=== PATIENT | male | born 1955 | race Hispanic/Latino ===

== ENCOUNTER → 2018-08-06 | Day surgery (SDC) | payer OTHER ==
[2018-08-05 15:45] LABS: BASOPHILS # (AUTO) 0.1 (0.0-0.1); BASOPHILS % 0.9 % (0.0-1.0); EOSINOPHILS # (AUTO) 0.2 (0.0-0.4); EOSINOPHILS % 1.8 % (0.0-6.0); HEMATOCRIT 37.7 % (38.2-49.6); HEMOGLOBIN 13.3 g/dL (14.0-18.0); LYMPHOCYTES # (AUTO) 2.7 (1.0-3.2); LYMPHOCYTES % 23.7 % (18.0-39.1); MEAN CORPUSCULAR HEMOGLOBIN 32.6 pg (28-32); MEAN CORPUSCULAR HGB CONC 35.3 g/dL (31-35); MEAN CORPUSCULAR VOLUME 92.4 fL (81-99); MONOCYTES % 8.6 % (4.4-11.3); NEUTROPHILS # (AUTO) 7.5 (2.1-6.9); NEUTROPHILS % 64.7 % (38.7-80.0); PLATELET COUNT 252 x10e3/uL (140-360); RED BLOOD COUNT 4.08 x10e6/uL (4.3-5.7); RED CELL DISTRIBUTION WIDTH 13.2 % (11.7-14.4)
[2018-08-05 16:01] LABS: ANION GAP 14.6 mmol/L (8-16); BLOOD UREA NITROGEN < 5 mg/dL (7-26); CALCIUM 9.7 mg/dL (8.4-10.2); CARBON DIOXIDE 25 mmol/L (22-29); CHLORIDE 102 mmol/L (98-107); CREATININE, SERUM 0.81 mg/dL (0.72-1.25); EST GLOMERULAR FILTRATION RATE > 60 ML/MIN (60-); GLUCOSE 103 mg/dL (74-118); POTASSIUM 4.6 mmol/L (3.5-5.1); SODIUM 137 mmol/L (136-145)
[2018-08-05 16:02] LABS: BUN/CREATININE RATIO 6 (6-25)
--- NOTE | 2018-08-05 16:14 | Diagnostic Imaging Report ---
EXAMINATION: CHEST 2 VIEWS INDICATION: Pre- COMPARISON: None FINDINGS: TUBES and LINES: None. LUNGS: Lungs are well inflated. Lungs are clear. There is no evidence of pneumonia or pulmonary edema. PLEURA: No pleural effusion or pneumothorax. HEART AND MEDIASTINUM: The cardiomediastinal silhouette is unremarkable. BONES AND SOFT TISSUES: No acute osseous lesion. Soft tissues are unremarkable. UPPER ABDOMEN: No free air under the diaphragm. IMPRESSION: No acute thoracic abnormality. Signed by: Dr. Carter Miller MD on 08/05/2018 4:10 PM
[~2018-08-06] MED LIST: ACETAMINOPHEN 1000 MG/100 ML IV ONE; BLOOD PRESSURE MED PO; BUPIVACAINE 0.25%/EPI 30ML SDV INJ ONE; DEXAMETHASONE SOD PHOS INJ 4 MG/ML VIAL ONE; FENTANYL CITRATE/PF 100MCG/2 ML INJ ONE; GLYCOPYRROLATE INJ 1MG/ 5 ML SYR ONE; HYDROCODONE/APAP 7.5MG-325MG 1 EA TAB ONE; HYDROMORPHONE 1MG/1ML INJ ONE; LIDOCAINE HCL 2% LOCAL INJ 5 ML SDV VIAL INJ ONE; LISINOPRIL10 MG PO; MIDAZOLAM HCL 2 MG/2 ML VIAL ONE; NEOSTIGMINE 5 MG/5ML SYR ONE; ONDANSETRON HCL INJ 2 MG/ML VIAL ONE; PROPOFOL IV EMULSION 10 MG/ML 20 ML VIAL ONE; ROCURONIUM BROMIDE 10 MG/ML 5ML VIAL ONE; SEVOFLURANE INHAL SOLN 250 ML PEN BTL ONE; XANAX PO
[2018-08-06 19:30] VITALS: BP 111/77
--- NOTE | 2018-08-06 20:51 | Operative Report ---
DATE OF PROCEDURE: August 06, 2018 PREOPERATIVE DIAGNOSIS: Incarcerated umbilical hernia. POSTOPERATIVE DIAGNOSIS: Incarcerated umbilical hernia. OPERATION PERFORMED: Repair of incarcerated umbilical hernia with Ventralex patch. ANESTHESIA: General. COMPLICATIONS: None. ESTIMATED BLOOD LOSS: Minimal. DESCRIPTION OF PROCEDURE: With the patient lying in bed in the supine position under good general endotracheal anesthesia, the abdomen was prepped with Betadine solution and draped in the usual manner. A semilunar subumbilical incision was made, was carried down through the subcutaneous tissue down to the fascia. The hernia sac was then circumferentially dissected with normal fascia all the way around. The umbilicus was then detached from the hernia sac and the hernia sac was opened. There was some incarcerated omentum contained within the hernia sac and this was resected and ligated with 2-0 Vicryl. The excess of the hernia sac was resected. Once this was done, all of the edges were properly prepared and a medium size Ventralex patch was then placed intraperitoneally and the defect was then closed transversally anchoring the mesh with the closure of 0 Ethibond. This gave us a satisfactory closure without any tension. The whole area was then thoroughly irrigated. Perfect hemostasis was ascertained. All layers were infiltrated on the way out with solution of 0.25% Marcaine. The umbilicus was then tacked back down to the midline fascia with 3-0 Vicryl. The subcutaneous tissue was approximated with 3-0 Vicryl and the skin was closed with interrupted vertical mattress sutures of 3-0 silk. A dressing was applied. The sponge, lap, and needle count was correct. The patient tolerated the procedure well and returned to the recovery room in stable condition. Job#: [id number] PRIYA
== END | disposition home or self-care (01) ==
LOC: OR 08:41
PROVIDERS: ATTEND Surgery
DX: K42.0 Umbilical hernia with obstruction, without gangrene (principal); I10 Essential (primary) hypertension; Z01.810 Encounter for preprocedural cardiovascular examination; Z01.812 Encounter for preprocedural laboratory examination; Z01.818 Encounter for other preprocedural examination
CPT/HCPCS: 36415; 49587; 71046; 80048; 85025; 93005; C1781; J1100; J1170; J2001; J2250; J2405; J3490

== ENCOUNTER 2019-06-08 18:14 | Inpatient (IN) | payer OTHER ==
[~2019-06-08] VITALS: Ht 172.7 cm; Wt 84.5 kg
[~2019-06-08 18:14] MED LIST changes: -ACETAMINOPHEN 1000 MG/100 ML IV ONE; -BUPIVACAINE 0.25%/EPI 30ML SDV INJ ONE; -DEXAMETHASONE SOD PHOS INJ 4 MG/ML VIAL ONE; -FENTANYL CITRATE/PF 100MCG/2 ML INJ ONE; -GLYCOPYRROLATE INJ 1MG/ 5 ML SYR ONE; -HYDROCODONE/APAP 7.5MG-325MG 1 EA TAB ONE; -HYDROMORPHONE 1MG/1ML INJ ONE; -LIDOCAINE HCL 2% LOCAL INJ 5 ML SDV VIAL INJ ONE; -MIDAZOLAM HCL 2 MG/2 ML VIAL ONE; -NEOSTIGMINE 5 MG/5ML SYR ONE; -ONDANSETRON HCL INJ 2 MG/ML VIAL ONE; -PROPOFOL IV EMULSION 10 MG/ML 20 ML VIAL ONE; -ROCURONIUM BROMIDE 10 MG/ML 5ML VIAL ONE; -SEVOFLURANE INHAL SOLN 250 ML PEN BTL ONE
--- OUTSIDE RECORDS SUMMARY | 2019-06-08 18:17 | XMS REPORT ---
Author Author [facility] Address Unknown Phone Unavailable Care Team Providers Care Pre Sales Systems Engineer Name Role Phone Natali RICHARDS Unavailable Unavailable Problems This patient has no known problems. Allergies, Adverse Reactions, Alerts This patient has no known allergies or adverse reactions. Medications This patient has no known medications. Encounters Start Date/Time End Date/Time Encounter Type Admission Type Attending Clinicians Care Facility Care Department Encounter ID 2018-07-23 00:00:00 2018-07-24 00:00:00 [id number] Results Test Description Test Time Test Comments Text Results Atomic Results Result Comments CHEST 2 VIEWS 2018-08-05 16:06:00 [place] [address] Patient Name: REYES CULP MR #: [id number] : 1955 Age/Sex: 62/M Req #: [id number] Adm Physician: Ordered by: MARLON RICHARDS MD Report #: [id number] Location: OR Room/Bed: Procedure: [id number] DX/CHEST 2 VIEWS Exam Date: 08/05/18 Exam Time: 1502 REPORT STATUS: Signed EXAMINATION: CHEST 2 VIEWS INDICATION: Pre- COMPARISON: None FINDINGS: TUBES and LINES: None. LUNGS: Lungs are well inflated. Lungs are clear. There is no evidence of pneumonia or pulmonary edema. PLEURA: No pleural effusion or pneumothorax. HEART AND MEDIASTINUM: The cardiomediastinal silhouette is unremarkable. BONES AND SOFT TISSUES: No acute osseous lesion. Soft tissues are unremarkable. UPPER ABDOMEN: No free air under the diaphragm. IMPRESSION: No acute thoracic abnormality. Signed by: Dr. Fitz Locke MD on 08/05/2018 4:10 PM Dictated By: FITZ LOCKE MD [id number] Transcribed By: RADHIKA on 08/05/18 1610 COPY TO: MARLON RICHARDS MD
[2019-06-08 20:03] LABS: BASOPHILS # (AUTO) 0.1 (0.0-0.1); BASOPHILS % 0.5 % (0.0-1.0); EOSINOPHILS # (AUTO) 0.3 (0.0-0.4); EOSINOPHILS % 2.2 % (0.0-6.0); HEMATOCRIT 36.9 % (38.2-49.6); LYMPHOCYTES # (AUTO) 3.4 (1.0-3.2); LYMPHOCYTES % 23.1 % (18.0-39.1); MEAN CORPUSCULAR HEMOGLOBIN 31.6 pg (28-32); MEAN CORPUSCULAR HGB CONC 35.2 g/dL (31-35); MEAN CORPUSCULAR VOLUME 89.6 fL (81-99); MONOCYTES # (AUTO) 1.4 (0.2-0.8); MONOCYTES % 9.6 % (4.4-11.3); NEUTROPHILS # (AUTO) 9.3 (2.1-6.9); NEUTROPHILS % 64.2 % (38.7-80.0); PLATELET COUNT 226 x10e3/uL (140-360); RED BLOOD COUNT 4.12 x10e6/uL (4.3-5.7); RED CELL DISTRIBUTION WIDTH 12.3 % (11.7-14.4)
[2019-06-08 20:15] LABS: INR 0.94; PROTHROMBIN TIME 13.1 seconds (11.9-14.5)
[2019-06-08 20:16] LABS: PARTIAL THROMBOPLASTIN TIME 39.6 seconds (23.8-35.5)
[2019-06-08 20:25] LABS: ALANINE AMINOTRANSFERASE 12 IU/L (0-55); ALBUMIN 3.9 g/dL (3.5-5.0); ALBUMIN/GLOBULIN RATIO 0.9 (0.8-2.0); ALKALINE PHOSPHATASE 58 IU/L (40-150); ANION GAP 15.3 mmol/L (8-16); BLOOD UREA NITROGEN 11 mg/dL (7-26); BUN/CREATININE RATIO 10 (6-25); CALCIUM 9.7 mg/dL (8.4-10.2); CARBON DIOXIDE 23 mmol/L (22-29); CHLORIDE 94 mmol/L (98-107); CREATININE, SERUM 1.06 mg/dL (0.72-1.25); EST GLOMERULAR FILTRATION RATE > 60 ML/MIN (60-); GLUCOSE 100 mg/dL (74-118); POTASSIUM 3.3 mmol/L (3.5-5.1); SODIUM 129 mmol/L (136-145)
[2019-06-08] MEDS ORDERED: POTASSIUM CHLORIDE 20 MEQ TAB CR PO ONE (21:20)
--- NOTE | 2019-06-08 21:20 | Diagnostic Imaging Report ---
KNEE LEFT THREE VIEWS HISTORY: Pain COMPARISON: None available. FINDINGS: Bones: No acute displaced fracture. Osseous alignment is within normal limits. Joints: The joint spaces are well-maintained. Minimal osteophytes in the tibiofemoral compartments. A fabella is noted, normal variant. Soft tissues: Vascular calcifications. IMPRESSION: No acute radiographic abnormality. Mild degenerative change in the knee. Signed by: Maximus Madison DO on 06/08/2019 9:17 PM
[2019-06-08] MEDS ORDERED: MORPHINE SULFATE 2 MG/ML SYR 1ML IV PRN (21:30)
[2019-06-08] MEDS ORDERED: ACETAMINOPHEN 325 MG TAB PO PRN (21:30)
[2019-06-08] MEDS ORDERED: VANCOMYCIN 1GM/NS 250 ML 250 ML IV SCH (22:00)
[2019-06-09] MEDS: MORPHINE SULFATE INJ 4 MG/ML INJ 1ML IV PRN ×5 (00:12→20:44)
[2019-06-09] MEDS: CEFEPIME 1GM/NS 0.9% 50 ML 50 ML IV SCH ×3 (00:13→20:53)
[2019-06-09] MEDS: VANCOMYCIN 1GM/NS 250 ML 250 ML IV SCH (02:45)
--- NOTE | 2019-06-09 07:09 | NUR ---
report endorsed to nurys duran
[2019-06-09 12:35] VITALS: BP 169/87
--- NOTE | 2019-06-09 12:35 | NUR ---
Pt received from ER at this time. Pt is aox4 and able to verbalize needs. Pt is being admitted for cellulitis to the left lower ext. Pt denies any pain at this time. Breaths are even and unlabored on room air.
[2019-06-09 12:46] VITALS: BP 169/87
[2019-06-09 16:00] VITALS: BP 121/66
--- NOTE | 2019-06-09 18:00 | NUR ---
Pt in bed. Aox4 and able to verbalize needs. Pt was medicated for pain at 1647. Breaths are even and unlabored.
--- NOTE | 2019-06-09 19:00 | NUR ---
Patient visited in room during nursing rounds. Patient alert and oriented x3. Pt states he can ambulate in room but feels pain on left leg when ambulating. Cellulitis noted on left leg with redness outlined. Scabs and discoloration noted on both lower legs. Pt on scheduled IV antibiotics. Call vaughn within reach. Will monitor closely.
[2019-06-09 20:00] VITALS: BP 134/74
[2019-06-09] MEDS ORDERED: SODIUM CHLORIDE 0.9% 250ML 250 ML ONE (20:40)
[2019-06-10] VITALS (7 sets, daily range): BP systolic 122–155; BP diastolic 62–79
[2019-06-10] MEDS: MORPHINE SULFATE INJ 4 MG/ML INJ 1ML IV PRN ×2 (03:08→19:20)
[2019-06-10] MEDS: VANCOMYCIN 1GM/NS 250 ML 250 ML IV SCH (03:13)
--- NOTE | 2019-06-10 06:52 | NUR ---
RECEIVED PATIENT RESTING IN BED. NO ACUTE DISTRESS NOTED. DENIES PAIN OR DISCOMFORT AT THIS TIME. CALL LIGHT WITHIN REACH. BED IN THE LOWEST POSITION.
[2019-06-10] MEDS ORDERED: ALPRAZOLAM2 MG PO (09:11)
[2019-06-10] MEDS: CEFEPIME 1GM/NS 0.9% 50 ML 50 ML IV SCH ×2 (09:15→20:45)
[2019-06-10] MEDS: ALPRAZOLAM 1 MG TAB PO SCH ×2 (09:54→20:45)
[2019-06-10] MEDS: LISINOPRIL 10 MG TAB PO SCH (09:54)
--- NOTE | 2019-06-10 14:21 | NUR ---
WOUND CARE CONSULTATION: THIS IS A 63 YEAR OLD MALE PATIENT ADMITTED TO [facility] FOR CELLULITIS OF LEFT LOWER LEG, HYPOKALEMIA, AND HYPONATREMIA. HEAD TO TOE SKIN ASSESSMENT PERFORMED. PATIENT HAS LEFT KNEE SWELLING, WARM TO TOUCH, REDNESS AND TENDER TO TOUCH. PATIENT STATES THAT SINCE ADMISSION AND STARTING ANTIBIOTICS THAT THE REDNESS, PAIN AND SWELLING HAVE DECREASED. LEFT LEG HAS 1+ PITTING EDEMA, AND PALPABLE PULSE ASSESSED TO DP AND PT. PATIENT HAS A LEFT LOWER LEG ESCHAR MEASURING 6X3.2X0.1CM, PERIWOUND IS DRY, SCALEY, AND DISCOLORATION NOTED. PATIENT HAS A LEFT MEDIAL ANKLE ESCHAR MEASURING 4.3X4.5X0.1CM, PERIWOUND IS DRY, SCALY, AND DISCOLORATION NOTED. PATIENT HAS A RIGHT LOWER LEG ESCHAR MEASURING 4.2X4X0.1CM, PERIWOUND IS DRY, SCALY, AND DISCOLORATION NOTED. PATIENT STATES THAT HE NOTICED THE DRY ESCHAR AREAS TO BOTH LEGS APPROXIMATELY 3 WEEKS AGO. LABS: WBC14.52 ALB3.9 LEFT LEG VENOUS DOPPLER = NEGATIVE FOR DVT LEFT KNEE X-RAY = NEGATIVE/NO ABNORMALITY MEDICATIONS: CEFEPIME VANCOMYCIN RECOMMENDATION: -APPLY BILATERAL HEEL PROTECTORS WITH PILLOW SUSPENSION. -APPLY ALTERNATING PRESSURE RELIEF MATTRESS. -ENCOURAGE PATIENT TO TURN EVERY 2 HOURS AND PRN. -NURSING TO WASH BILATERAL LOWER LEGS WITH SOAP AND WATER, PAT DRY, APPLY TRIAMCINOLONE CREAM TO RIGHT LOWER LEG ESCHAR WITH DISCOLORATION, LEFT LOWER LEG ESCHAR WITH DISCOLORATION, AND LEFT MEDIAL ANKLE ESCHAR WITH DISCOLORATION; LEAVE OPEN TO AIR; APPLY BID AND PRN. -NURSING CONTINUE TO MONITOR THE OUTLINE SURROUNDING THE LEFT KNEE SWELLING AND REDNESS TO ASSESS THAT REDNESS AND SWELLING CONTINUE TO DECREASE. THANK YOU FOR THIS WOUND CARE CONSULT. Addendum: 06/10/19 at 1442 by Brandie Laboy RN Amended: Links added.
--- NOTE | 2019-06-10 19:10 | NUR ---
REPORT GIVEN TO ONCOMING NURSE. PATIENT IS RESTING IN BED. NO ACUTE DISTRESS NOTED. FAMILY AT BEDSIDE. CALL LIGHT WITHIN REACH. BED IN THE LOWEST POSITION.
--- NOTE | 2019-06-10 19:17 | NUR ---
PT IS RESTING IN BED WITH FAMILY AT BEDSIDE. RESPIRATION IS EVEN AND UNLABORED, NO DISTRESS NOTED. BED IN THE LOWEST POSITION, LOCKED, AND CALL LIGHT WITHIN REACH. WILL CONTINUE TO MONITOR.
[2019-06-10] MEDS: TRIAMCINOLONE ACET 0.1% CREAM 15 GM TUBE TOP SCH (20:43)
[2019-06-11] VITALS (9 sets, daily range): BP systolic 99–142; BP diastolic 59–76
[2019-06-11] MEDS: VANCOMYCIN 1GM/NS 250 ML 250 ML IV SCH (03:34)
[2019-06-11] MEDS: MORPHINE SULFATE INJ 4 MG/ML INJ 1ML IV PRN ×3 (03:43→15:49)
[2019-06-11 03:54] LABS: BASOPHILS # (AUTO) 0.1 (0.0-0.1); BASOPHILS % 0.8 % (0.0-1.0); EOSINOPHILS # (AUTO) 0.2 (0.0-0.4); EOSINOPHILS % 2.4 % (0.0-6.0); HEMOGLOBIN 11.9 g/dL (14.0-18.0); LYMPHOCYTES # (AUTO) 2.2 (1.0-3.2); LYMPHOCYTES % 21.9 % (18.0-39.1); MEAN CORPUSCULAR HEMOGLOBIN 32.2 pg (28-32); MEAN CORPUSCULAR HGB CONC 36.1 g/dL (31-35); MEAN CORPUSCULAR VOLUME 89.2 fL (81-99); MONOCYTES # (AUTO) 1.3 (0.2-0.8); MONOCYTES % 13.2 % (4.4-11.3); NEUTROPHILS # (AUTO) 6.1 (2.1-6.9); NEUTROPHILS % 61.3 % (38.7-80.0); PLATELET COUNT 209 x10e3/uL (140-360); RED CELL DISTRIBUTION WIDTH 12.3 % (11.7-14.4)
[2019-06-11 04:06] LABS: ANION GAP 14.5 mmol/L (8-16); BLOOD UREA NITROGEN 9 mg/dL (7-26); BUN/CREATININE RATIO 11 (6-25); CARBON DIOXIDE 23 mmol/L (22-29); CHLORIDE 103 mmol/L (98-107); EST GLOMERULAR FILTRATION RATE > 60 ML/MIN (60-); GLUCOSE 101 mg/dL (74-118); POTASSIUM 3.5 mmol/L (3.5-5.1); SODIUM 137 mmol/L (136-145)
--- NOTE | 2019-06-11 06:50 | NUR ---
RECEIVED PATIENT RESTING IN BED. NO ACUTE DISTRESS NOTED. NO S/S OF PAIN NOTED AT THIS TIME. CALL LIGHT WITHIN REACH. BED IN THE LOWEST POSITION.
[2019-06-11] MEDS: CEFEPIME 1GM/NS 0.9% 50 ML 50 ML IV SCH ×2 (08:20→20:12)
[2019-06-11] MEDS: TRIAMCINOLONE ACET 0.1% CREAM 15 GM TUBE TOP SCH ×2 (08:20→20:12)
[2019-06-11] MEDS: ALPRAZOLAM 1 MG TAB PO SCH ×2 (08:20→20:12)
[2019-06-11] MEDS: LISINOPRIL 10 MG TAB PO SCH (08:20)
--- NOTE | 2019-06-11 19:07 | NUR ---
REPORT GIVEN TO ONCOMING NURSE, WALKING ROUNDS DONE. PATIENT IS RESTING IN BED. NO ACUTE DISTRESS NOTED. SISTER AT BEDSIDE. CALL LIGHT WITHIN REACH. BED IN THE LOWEST POSITION.
--- NOTE | 2019-06-11 19:10 | NUR ---
PT IS RESTING IN BED WITH SISTER AT BEDSIDE. RESPIRATION IS EVEN AND UNLABORED, NO DISTRESS NOTED. BED IN THE LOWEST POSITION, LOCKED, AND CALL LIGHT WITHIN REACH. WILL CONTINUE TO MONITOR.
[2019-06-12] VITALS (8 sets, daily range): BP systolic 119–159; BP diastolic 66–80
[2019-06-12] MEDS: VANCOMYCIN 1GM/NS 250 ML 250 ML IV SCH ×2 (03:09→19:59)
[2019-06-12] MEDS: MORPHINE SULFATE INJ 4 MG/ML INJ 1ML IV PRN ×3 (03:42→13:55)
--- NOTE | 2019-06-12 06:58 | NUR ---
RECEIVED PATIENT RESTING IN BED. NO ACUTE DISTRESS NOTED. PAIN AT A TOLERABLE LEVEL AT THIS TIME. CALL LIGHT WITHIN REACH. BED IN THE LOWEST POSITION.
[2019-06-12] MEDS: TRIAMCINOLONE ACET 0.1% CREAM 15 GM TUBE TOP SCH ×2 (07:00→19:59)
--- NOTE | 2019-06-12 07:00 | NUR ---
WOUND CARE COMPLETED AT THIS TIME. PATIENT TOLERATED IT WELL.
[2019-06-12] MEDS: CEFEPIME 1GM/NS 0.9% 50 ML 50 ML IV SCH ×2 (08:32→21:36)
[2019-06-12] MEDS: LISINOPRIL 10 MG TAB PO SCH (08:32)
[2019-06-12] MEDS: ALPRAZOLAM 1 MG TAB PO SCH ×2 (08:32→19:59)
--- NOTE | 2019-06-12 19:04 | NUR ---
REPORT GIVEN TO ONCOMING NURSE, WALKING ROUNDS DONE. PATIENT IS IN STABLE CONDITION. NO S/S OF PAIN NOTED. CALL LIGHT WITHIN REACH. BED IN THE LOWEST POSITION.
--- NOTE | 2019-06-12 19:06 | NUR ---
PT IS RESTING IN BED. RESPIRATION IS EVEN AND UNLABORED, NO DISTRESS NOTED. BED IN THE LOWEST POSITION, LOCKED, AND CALL LIGHT WITHIN REACH. WILL CONTINUE TO MONITOR.
[2019-06-13] VITALS (8 sets, daily range): BP systolic 124–161; BP diastolic 66–79
[2019-06-13] MEDS: MORPHINE SULFATE INJ 4 MG/ML INJ 1ML IV PRN ×11 (04:02→23:43)
[2019-06-13 06:18] LABS: BASOPHILS # (AUTO) 0.1 (0.0-0.1); BASOPHILS % 0.6 % (0.0-1.0); EOSINOPHILS # (AUTO) 0.5 (0.0-0.4); EOSINOPHILS % 3.3 % (0.0-6.0); HEMOGLOBIN 12.9 g/dL (14.0-18.0); LYMPHOCYTES % 6.5 % (18.0-39.1); MEAN CORPUSCULAR HEMOGLOBIN 31.6 pg (28-32); MEAN CORPUSCULAR HGB CONC 32.3 g/dL (31-35); MONOCYTES # (AUTO) 1.2 (0.2-0.8); MONOCYTES % 7.4 % (4.4-11.3); NEUTROPHILS # (AUTO) 12.4 (2.1-6.9); NEUTROPHILS % 80.2 % (38.7-80.0); PLATELET COUNT 247 x10e3/uL (140-360); RED BLOOD COUNT 4.08 x10e6/uL (4.3-5.7); RED CELL DISTRIBUTION WIDTH 15.3 % (11.7-14.4)
[2019-06-13 07:30] LABS: ANION GAP 12.5 mmol/L (8-16); BLOOD UREA NITROGEN 8 mg/dL (7-26); BUN/CREATININE RATIO 10 (6-25); CALCIUM 8.8 mg/dL (8.4-10.2); CARBON DIOXIDE 27 mmol/L (22-29); CHLORIDE 102 mmol/L (98-107); CREATININE, SERUM 0.82 mg/dL (0.72-1.25); EST GLOMERULAR FILTRATION RATE > 60 ML/MIN (60-); GLUCOSE 96 mg/dL (74-118); POTASSIUM 3.5 mmol/L (3.5-5.1); SODIUM 138 mmol/L (136-145)
[2019-06-13] MEDS: ALPRAZOLAM 1 MG TAB PO SCH ×2 (08:42→21:14)
[2019-06-13] MEDS: LISINOPRIL 10 MG TAB PO SCH (08:43)
--- NOTE | 2019-06-13 08:44 | NUR ---
In to give morning med pass and attempted to flush iv cath and met with resistant and pt. report pain at the site. attempt made to restart unsuccessful times two. Will ask for assistance with restart.
--- NOTE | 2019-06-13 09:15 | NUR ---
The pt's iv was restarted and antibiotics and pain med given.
[2019-06-13] MEDS: VANCOMYCIN 1GM/NS 250 ML 250 ML IV SCH ×2 (09:33→21:14)
[2019-06-13] MEDS: CEFEPIME 1GM/NS 0.9% 50 ML 50 ML IV SCH ×2 (09:33→21:30)
[2019-06-13] MEDS: TRIAMCINOLONE ACET 0.1% CREAM 15 GM TUBE TOP SCH ×2 (09:34→21:00)
--- NOTE | 2019-06-13 16:17 | Diagnostic Imaging Report ---
Exam: Focused soft tissue ultrasound of the anterior left knee Clinical History: Concern for fluid collection Findings: Sonographic grayscale and color evaluation of the soft tissues of the anterior left knee demonstrate subcutaneous soft tissue edema with no definite focal fluid collection or mass. Impression: Subcutaneous edema with no definite focal fluid collection or mass. Signed by: Avril Waldron MD on 06/13/2019 4:14 PM
--- NOTE | 2019-06-13 20:00 | NUR ---
ROUNDS DONE, PATIENT RESTING IN BED WATCHING TV, NO DISTRESS NOTED. WILL CONTINUE TO MONITOR.
[2019-06-14] VITALS (9 sets, daily range): BP systolic 121–173; BP diastolic 62–79
--- NOTE | 2019-06-14 | NUR ---
MEDICATED EARLIER FOR PAIN, PATIENTS RESTING, WILL CONTINUE TO MONITOR. CALL LIGHT IN REACH.
--- NOTE | 2019-06-14 06:56 | NUR ---
rounds done, patient continue resting, no distress noted, call light remain in reach. will continue to monitor.
--- NOTE | 2019-06-14 07:00 | NUR ---
The pt. is in bed awake and side rails are elevated times 2. He denies pain or discomfort at this time
[2019-06-14] MEDS: VANCOMYCIN 1GM/NS 250 ML 250 ML IV SCH ×2 (08:24→21:36)
[2019-06-14] MEDS: ALPRAZOLAM 1 MG TAB PO SCH ×2 (08:31→21:37)
[2019-06-14] MEDS: CEFEPIME 1GM/NS 0.9% 50 ML 50 ML IV SCH ×2 (08:31→23:33)
[2019-06-14] MEDS: TRIAMCINOLONE ACET 0.1% CREAM 15 GM TUBE TOP SCH ×2 (08:31→21:37)
[2019-06-14] MEDS: LISINOPRIL 10 MG TAB PO SCH (08:31)
[2019-06-14] MEDS: MORPHINE SULFATE INJ 4 MG/ML INJ 1ML IV PRN ×3 (09:10→23:30)
--- NOTE | 2019-06-14 19:00 | NUR ---
Completed bedside rounds with morning nurse. Pt alert to name. Lying in bed HOB 45 degrees. c/o 4/10 pain to left knee. Edema +1. Skin warm to touch. Call vaughn within reach. Will continue to monitor.
[2019-06-15] VITALS: BP_SYST 112; BP_SYST 130; BP_DIAS 60; BP_DIAS 64
[2019-06-15 04:00] VITALS: BP 114/62
[2019-06-15 05:52] LABS: BASOPHILS # (AUTO) 0.1 (0.0-0.1); BASOPHILS % 1.1 % (0.0-1.0); EOSINOPHILS # (AUTO) 0.4 (0.0-0.4); EOSINOPHILS % 4.1 % (0.0-6.0); HEMATOCRIT 34.8 % (38.2-49.6); HEMOGLOBIN 12.6 g/dL (14.0-18.0); LYMPHOCYTES # (AUTO) 1.7 (1.0-3.2); LYMPHOCYTES % 19.2 % (18.0-39.1); MEAN CORPUSCULAR HEMOGLOBIN 32.5 pg (28-32); MEAN CORPUSCULAR HGB CONC 36.2 g/dL (31-35); MEAN CORPUSCULAR VOLUME 89.7 fL (81-99); MONOCYTES # (AUTO) 1.2 (0.2-0.8); MONOCYTES % 13.3 % (4.4-11.3); NEUTROPHILS # (AUTO) 5.5 (2.1-6.9); NEUTROPHILS % 61.6 % (38.7-80.0); PLATELET COUNT 217 x10e3/uL (140-360); RED BLOOD COUNT 3.88 x10e6/uL (4.3-5.7); RED CELL DISTRIBUTION WIDTH 12.4 % (11.7-14.4)
[2019-06-15 06:15] LABS: ALANINE AMINOTRANSFERASE 27 IU/L (0-55); ALBUMIN 3.2 g/dL (3.5-5.0); ALBUMIN/GLOBULIN RATIO 1.1 (0.8-2.0); ALKALINE PHOSPHATASE 49 IU/L (40-150); ANION GAP 12.7 mmol/L (8-16); BLOOD UREA NITROGEN 9 mg/dL (7-26); BUN/CREATININE RATIO 11 (6-25); CALCIUM 8.8 mg/dL (8.4-10.2); CARBON DIOXIDE 23 mmol/L (22-29); CHLORIDE 105 mmol/L (98-107); CREATININE, SERUM 0.79 mg/dL (0.72-1.25); EST GLOMERULAR FILTRATION RATE > 60 ML/MIN (60-); GLUCOSE 96 mg/dL (74-118); POTASSIUM 3.7 mmol/L (3.5-5.1); SODIUM 137 mmol/L (136-145)
[2019-06-15 07:20] VITALS: BP 132/96
--- NOTE | 2019-06-15 07:20 | NUR ---
PATIENT IN BED RESTING WITH WITH EYES CLOSED, NO S/S OF DISTRESS NOTED. REDNESS AND SWELLING TO LEFT FOOT. BRUISES TO RIGHT FOOT. BED IN LOWER POSITION, CALL LIGHT AT REACH.
[2019-06-15] MEDS: VANCOMYCIN 1GM/NS 250 ML 250 ML IV SCH (08:00)
[2019-06-15 08:23] VITALS: BP 132/96
[2019-06-15 08:24] LABS: LYMPHOCYTES % (MANUAL) 20 % (19-48); MONOCYTES % (MANUAL) 13 % (3.4-9.0); NEUTROPHILS % (MANUAL) 67 % (40-74)
[2019-06-15 08:25] LABS: PLATELET ESTIMATE ADEQUATE; PLATELET MORPHOLOGY COMMENT RARE EDTA CLUMPING
[2019-06-15] MEDS: LISINOPRIL 10 MG TAB PO SCH (09:16)
[2019-06-15] MEDS: ALPRAZOLAM 1 MG TAB PO SCH (09:17)
[2019-06-15] MEDS: CEFEPIME 1GM/NS 0.9% 50 ML 50 ML IV SCH (10:02)
[2019-06-15] MEDS: TRIAMCINOLONE ACET 0.1% CREAM 15 GM TUBE TOP SCH (10:02)
[2019-06-15] MEDS: MORPHINE SULFATE INJ 4 MG/ML INJ 1ML IV PRN (10:20)
--- NOTE | 2019-06-15 11:10 | NUR ---
PATIENT C/O PAIN TO LEFT KNEE. PAIN MEDICATION GIVEN ORDERED. WILL CLOSELY MONITOR.
[2019-06-15 11:20] VITALS: BP 122/71
[2019-06-15] MEDS ORDERED: LEVAQUIN500 MG PO (13:16)
--- NOTE | 2019-06-15 14:00 | NUR ---
PATIENT DISCHARGED HOME. DISCHARGE INSTRUCTIONS, PRESCRIPTION, AND FOLLOW UP GIVEN TO PATIENT, HE VERBALIZED UNDERSTANDING. IV TO LEFT HAND REMOVED WITH TIP INTACT. ALL PERSONAL ITEMS TAKEN WITH PATIENT. REFUSED WHEEL CHAIR, LEFT UNIT PER WHEEL CHAIR TO FRONT LOBBY IN STABLE CONDITION.
--- NOTE | 2019-07-17 16:23 | Discharge Summary ---
CHIEF COMPLAINT: Swelling and redness lower extremity, low-grade temperature. FINAL DIAGNOSES: 1. Cellulitis, left leg, resolved. 2. Cellulitis left knee, resolved. DISPOSITION: Home. HOSPITAL COURSE: A 63-year-old male, known past medical history of hypertension and anxiety, brought to the ER with a 2-week history of progressive swelling and redness to the lower extremity associated with a low-grade temperature, but no chills. Has had pain the date of admission. Was unable to stand on the left leg. Has no other issues or complaint. Was reviewed and evaluated in the ER. Findings were showing diffuse edema and erythema on left leg, warm to touch. A 5/5 redness area, swollen just below the left knee, tender to palpate. Underwent review and evaluation and studies in the ER. Admission was made for treatment regarding cellulitis lower extremity, questionable abscess left leg [id number], edema left leg, hypertension. We will be obtaining blood cultures. Started on IV antibiotics. Home medications will continue. The patient was initially held in the ER, was on a regular diet, was resting comfortably, was in no acute distress, was started on IV antibiotics of cefepime and vancomycin, was given medications for temperature management, and was also given medications for pain relief. Laboratory studies were being watched and noted to have initial leukocytosis issues, presenting also with some hypokalemia. The stay was progressing, was placed on the Med-Surg floor. Continuing on his diet. Continue on his medications. Continued to have complaints of the left leg. Lab studies continuing. He was beginning to feel better overall, was able to stand on his leg now. His other medications were continuing in addition to the aforementioned medications. Continued to have a slightly decreased potassium. The swelling began to decrease in the leg, underwent ultrasound of the knee for evaluation of possible abscess. Continuing to reveal an elevated white count. His overall cellulitis was resolving. The blood pressure was being managed. Medications are being adjusted for better control and the patient stabilized, who is well to be discharged and was able to be released on 06/15/2019 in a good condition. IMAGING: A lower extremity Doppler shows no evidence of thrombosis in the left leg. Routine knee x-ray left shows no acute radiographic abnormality, mild degenerative changes in the knee. Ultrasound of the left leg for evaluation of possible fluid collection. Finding shows subcutaneous edema with no definite focal fluid collection or mass. LABORATORY STUDIES: On the patient shows initial CBC, white cell count elevated at 14,500, H and H were 13.0 and 36.9. Followup CBC showed a drop in the white cell count of 10,000, H and H fell to 11.9 and 33.0. Repeat CBC shows a white cell count was back up to 15,000, H and H improved slightly. Final white cell count is 8900. Final H and H are 12.6 and 34.8. Chemistries shows initial electrolytes with a sodium 129, potassium is 3.3. Kidney function stable. Glucose stable. Followup chemistries now revealed stable sodiums, stable potassiums. Responded well to treatment and was discharged as mentioned. The patient was discharged home. IVs were discontinued. The patient will be on prescription medications p.o. He will continue on his current diet. No equipments or supplies are necessary. No drains or Ramirez was needed. Activity level as directed by myself. Followup care, the patient will be returning to his PCP within 7 to 10 days. He will be continued on alprazolam 2 mg p.o. q.12, Levaquin 500 mg p.o. daily for 7 days, and lisinopril 10 mg p.o. daily. Would be monitoring visually the left leg and if the symptoms return, he will be contacting his PCP LIZET. Dictated by KAYLEN Nguyen Jorge Mcnulty MD CC/MODL /[id number]
== END 2019-06-15 13:56 | disposition home or self-care (01) | DRG 872 ==
LOC: ER 18:14 → ERHOLD 23:17 → MED/SURG3 06-09 12:45 → OBSVTOIN 06-10 10:02
DX: A41.9 Sepsis, unspecified organism (principal); L03.116 Cellulitis of left lower limb; E87.1 Hypo-osmolality and hyponatremia; L02.416 Cutaneous abscess of left lower limb; I10 Essential (primary) hypertension; F41.9 Anxiety disorder, unspecified; Z82.49 Family history of ischemic heart disease and other diseases of the circulatory system; E87.6 Hypokalemia; M19.90 Unspecified osteoarthritis, unspecified site
CPT/HCPCS: 36415; 76882; 80048; 80053; 80202; 85025; 85610; 85730; 93971; 99284; G0378; J0692; J2270; J3370; J7050

== ENCOUNTER 2021-06-10 11:15 | Inpatient (IN) | payer OTHER ==
[~2021-06-10] VITALS: Ht 172.7 cm; Wt 84.4 kg
[~2021-06-10 11:15] MED LIST changes: +ALPRAZOLAM2 MG PO; +LEVAQUIN500 MG PO
[2021-06-10 11:57] LABS: BASOPHILS # (AUTO) 0.1 (0.0-0.1); BASOPHILS % 0.8 % (0.0-1.0); EOSINOPHILS # (AUTO) 0.1 (0.0-0.4); EOSINOPHILS % 0.4 % (0.0-6.0); HEMATOCRIT 43.1 % (38.2-49.6); HEMOGLOBIN 15.2 g/dL (14.0-18.0); LYMPHOCYTES # (AUTO) 2.2 (1.0-3.2); LYMPHOCYTES % 15.7 % (18.0-39.1); MEAN CORPUSCULAR HEMOGLOBIN 31.5 pg (28-32); MEAN CORPUSCULAR HGB CONC 35.3 g/dL (31-35); MEAN CORPUSCULAR VOLUME 89.4 fL (81-99); MONOCYTES # (AUTO) 1.4 (0.2-0.8); MONOCYTES % 9.8 % (4.4-11.3); NEUTROPHILS # (AUTO) 10.4 (2.1-6.9); NEUTROPHILS % 72.8 % (38.7-80.0); PLATELET COUNT 199 x10e3/uL (140-360); RED BLOOD COUNT 4.82 x10e6/uL (4.3-5.7); RED CELL DISTRIBUTION WIDTH 13.2 % (11.7-14.4)
[2021-06-10 12:23] LABS: INR 0.91; PROTHROMBIN TIME 12.8 seconds (11.9-14.5)
[2021-06-10 12:24] LABS: PARTIAL THROMBOPLASTIN TIME 28.6 seconds (23.8-35.5)
[2021-06-10 12:29] LABS: AMPHETAMINES SCREEN,URINE NEGATIVE (NEGATIVE); BENZODIAZEPINES SCREEN,URINE POSITIVE (NEGATIVE); CLARITY,URINE CLEAR (CLEAR); COLOR,URINE YELLOW (YELLOW); PHENCYCLIDINE SCREEN,URINE NEGATIVE (NEGATIVE)
[2021-06-10 12:30] LABS: KETONES,URINE 1+ (NEGATIVE); LEUKOCYTE ESTERASE ,URINE NEGATIVE (NEGATIVE); NITRITE,URINE NEGATIVE (NEGATIVE); PROTEIN,URINE DIPSTICK NEGATIVE (NEGATIVE); URINE UROBILINOGEN 0.2 mg/dL (0.2 - 1)
[2021-06-10 12:33] LABS: SALICYLATE < 5.0 mg/dL (0-30)
[2021-06-10 12:35] LABS: BACTERIA,URINE FEW /HPF; EPITHELIAL CELLS,URINE RARE /LPF; WBC,URINE (MAN) 0-5 /HPF (0-5)
[2021-06-10 14:36] LABS: ALBUMIN 4.1 g/dL (3.5-5.0); ALBUMIN/GLOBULIN RATIO 1.3 (0.8-2.0); ANION GAP 15.2 mmol/L (8-16); CALCIUM 9.2 mg/dL (8.4-10.2); CREATININE, SERUM 0.9 mg/dL (0.72-1.25); MAGNESIUM 2.1 MG/DL (1.3-2.1); POTASSIUM 4.2 mmol/L (3.5-5.1)
[2021-06-10 14:42] LABS: CREATINE KINASE MB 3.4 ng/mL (0-5.0)
[2021-06-10] MEDS ORDERED: MULTIVITAMINS- 12 INJECTION 10 ML, FOLIC ACID MDV 5 MG, THIAMINE HCL INJ 100 MG in SODI... IV ONE (16:15)
[2021-06-10] MEDS ORDERED: CEFTRIAXONE 1 GM in SODIUM CHLORIDE 0.9% 50ML 50 ML IV ONE (16:15)
[2021-06-10] MEDS ORDERED: LORAZEPAM INJ 2 MG/ML VIAL IV PRN (16:15)
[2021-06-10] MEDS ORDERED: ONDANSETRON HCL INJ 2MG/ML 2ML 2 MG/ML VIAL IV PRN (16:15)
[2021-06-10] MEDS ORDERED: SODIUM CHLORIDE 0.9% 250ML 250 ML ONE (18:38)
[2021-06-10 20:00] VITALS: BP 152/90
[2021-06-10 20:10] VITALS: BP 152/90
[2021-06-11] VITALS (9 sets, daily range): BP systolic 131–147; BP diastolic 74–78
[2021-06-11] MEDS ORDERED: PNEUMOCOCCAL VACCINE POLYVALENT 23 MCG/0.5 ML VIAL IM SCH (03:34)
[2021-06-11 05:05] LABS: BASOPHILS # (AUTO) 0.1 (0.0-0.1); BASOPHILS % 0.9 % (0.0-1.0); EOSINOPHILS # (AUTO) 0.1 (0.0-0.4); EOSINOPHILS % 1.3 % (0.0-6.0); HEMOGLOBIN 13.8 g/dL (14.0-18.0); LYMPHOCYTES # (AUTO) 2.3 (1.0-3.2); MEAN CORPUSCULAR HEMOGLOBIN 31.5 pg (28-32); MEAN CORPUSCULAR HGB CONC 35.4 g/dL (31-35); MONOCYTES # (AUTO) 0.9 (0.2-0.8); MONOCYTES % 9.7 % (4.4-11.3); NEUTROPHILS # (AUTO) 5.8 (2.1-6.9); NEUTROPHILS % 62.8 % (38.7-80.0); PLATELET COUNT 188 x10e3/uL (140-360); RED BLOOD COUNT 4.38 x10e6/uL (4.3-5.7)
[2021-06-11 05:19] LABS: ALBUMIN 3.7 g/dL (3.5-5.0); ALBUMIN/GLOBULIN RATIO 1.3 (0.8-2.0); ANION GAP 12.4 mmol/L (8-16); CALCIUM 8.5 mg/dL (8.4-10.2); CREATININE, SERUM 0.88 mg/dL (0.72-1.25); POTASSIUM 3.4 mmol/L (3.5-5.1)
[2021-06-11 06:01] LABS: CREATINE KINASE MB 1.9 ng/mL (0-5.0)
[2021-06-11] MEDS ORDERED: MULTIVITAMINS- 12 INJECTION 10 ML, FOLIC ACID MDV 5 MG, THIAMINE HCL INJ 100 MG in SODI... IV ONE (12:00)
[2021-06-11] MEDS: CHLORDIAZEPOXIDE HCL 25 MG CAP PO SCH ×3 (12:44→22:00)
[2021-06-11 15:12] LABS: CREATINE KINASE MB 2.2 ng/mL (0-5.0)
[2021-06-12 00:42] VITALS: BP 116/67
[2021-06-12 04:00] VITALS: BP 158/89
[2021-06-12] MEDS: CHLORDIAZEPOXIDE HCL 25 MG CAP PO SCH ×2 (06:00→14:00)
[2021-06-12 07:54] VITALS: BP 134/79
[2021-06-12 08:59] VITALS: BP 134/79
[2021-06-12] MEDS ORDERED: POTASSIUM CHLORIDE 20 MEQ TAB CR PO ONE (09:30)
[2021-06-12] MEDS ORDERED: PNEUMOCOCCAL VACCINE POLYVALENT 23 MCG/0.5 ML VIAL IM ONE (12:45)
== END 2021-06-12 16:40 | disposition home or self-care (01) | DRG 897 ==
LOC: ER 11:49 → ERHOLD 16:24 → MED/SURG2 18:11
DX: F10.230 Alcohol dependence with withdrawal, uncomplicated (principal); Y90.0 Blood alcohol level of less than 20 mg/100 ml; Z20.822 Contact with and (suspected) exposure to COVID-19; E87.6 Hypokalemia
CPT/HCPCS: 36415; 70450; 71045; 72125; 80053; 80307; 80320; 80329; 81001; 82140; 82550; 82553; 82948; 83735; 83880; 84484; 85025; 85610; 85730; 87040; 87086; 90732; 93005; 99285; J0696; J2060; J3411; J7030; J7050; U0002

== ENCOUNTER 2025-04-05 20:55 | Emergency (ER) | payer MEDICARE, OTHER ==
[~2025-04-05] VITALS: Ht 172.7 cm; Wt 84.4 kg
[2025-04-05 21:50] VITALS: PULSE 70; RESP 17; TEMP 97.9
[2025-04-05 23:49] VITALS: BP 108/64; PULSE 69; RESP 17; TEMP 98; O2SAT 99
== END 2025-04-06 00:15 ==
LOC: ER 21:01
DX: S00.83XA Contusion of other part of head, initial encounter (principal); M54.2 Cervicalgia; W18.39XA Other fall on same level, initial encounter; Y92.89 Other specified places as the place of occurrence of the external cause; I10 Essential (primary) hypertension; G40.909 Epilepsy, unspecified, not intractable, without status epilepticus; R13.10 Dysphagia, unspecified; F03.90 Unspecified dementia, unspecified severity, without behavioral disturbance, psychotic disturbance, mood disturbance, and anxiety; F41.9 Anxiety disorder, unspecified; F32.A Depression, unspecified
CPT/HCPCS: 70450; 72125; 72170; 99284